=== PATIENT | female | born 1945 | race Caucasian/White ===

== ENCOUNTER 2019-11-21 00:45 | Observation (INO) | payer OTHER ==
[~2019-11-21] VITALS: Ht 170.2 cm; Wt 73.5 kg
[2019-11-21] VITALS (8 sets, daily range): BP systolic 91–119; BP diastolic 55–70
[2019-11-21] MEDS ORDERED: METFORMIN HCL500 M3 PO (01:12)
[2019-11-21] MEDS ORDERED: HYDROXYZINE HCL25 M2 PO (01:13)
[2019-11-21] MEDS ORDERED: JANUVIA100 MG PO (01:14)
[2019-11-21] MEDS ORDERED: CARVEDILOL PO (01:14)
[2019-11-21] MEDS ORDERED: FUROSEMIDE 20 M20 M1 PO (01:15)
[2019-11-21] MEDS ORDERED: PRAVACHOL 20 MG20 M1 PO (01:15)
[2019-11-21] MEDS ORDERED: VITAMIN B-121000 MC2 SUBLING (01:16)
[2019-11-21] MEDS ORDERED: ASA81BEC PO (01:17)
[2019-11-21] MEDS ORDERED: VITAMIN D 2 PO (01:19)
[2019-11-21] MEDS ORDERED: CHOLESTYRAMINE P4 GM PO (01:20)
[2019-11-21] MEDS ORDERED: SUPER THERAVIT1 EACH PO (01:20)
[2019-11-21 01:56] LABS: ABSOLUTE EOSINOPHILS 0.1 thou/uL (0.0-0.7); ABSOLUTE LYMPHOCYTES 1.3 thou/uL (0.8-5.3); ABSOLUTE MONOCYTES 0.9 thou/uL (0.0-1.2); ABSOLUTE NEUTROPHILS 6.4 thou/uL (1.6-8.1); BASOPHILS 0.5 %; EOSINOPHILS 1.6 %; HEMATOCRIT 38.9 % (37.0-47.0); HEMOGLOBIN 13.4 gm/dL (12.0-15.0); LYMPHOCYTES 15.3 %; MCH 31.6 pg (26.0-34.0); MCHC 34.5 g/dL (28.0-37.0); MCV 91.5 fL (80.0-100.0); MONOCYTES 9.8 %; MPV 9.6 fl. (7.2-11.1); NUCLEATED RBCS 0 /100WBC; PLATELET COUNT* 190 thou/uL (150-400); POLYS 72.8 %; RBC 4.25 mil/uL (4.20-5.00); RDW-CV 13.6 % (10.5-14.5); WBC 8.8 thou/uL (4.0-11.0)
[2019-11-21 02:08] LABS: CALCIUM 8.4 mg/dL (8.5-10.1); CREATININE 0.8 mg/dL (0.6-1.3); POTASSIUM 3.8 mmol/L (3.5-5.1)
[2019-11-21 02:10] LABS: PROTIME 10.7 Seconds (9.20-11.50)
[2019-11-21 02:21] LABS: ALBUMIN 3.5 g/dL (3.4-5.0); TOTAL BILIRUBIN 1.1 mg/dL (<0.1-1.0); TOTAL PROTEIN 6.7 g/dL (6.4-8.2)
--- NOTE | 2019-11-21 07:18 | NUR ---
Pt admitted to 233 @ 0515. Alert and oriented. Vss on 2l. Pt oriented to RM and call light. Pt rates pain a 5. Pt NSR on the monitor. Pt has a HX of fall and voiced that she uses walker and cane at home. Therefore pt is a fall risk. Fall precaution in place. Med reconciliation done. Pt currently in bed, resting. Will continue to monitor.
[2019-11-21 09:42] LABS: CHOLESTEROL 176 mg/dL (<200); HDL CHOLESTEROL 37 mg/dL (>40); LDL CHOLESTEROL 78 mg/dL (<100); SERUM ASSESSMENT Clear; TC:HDL 4.8 Ratio (Not establshd); TRIGLYCERIDE 307 mg/dL (<150); VLDL 61 mg/dL (<40)
--- NOTE | 2019-11-21 09:55 | EKG ---
[place] [address] ELECTROCARDIOGRAM REPORT Name: CASTRO ANTHONY Room: [address]R.#: [id number] Admission: 11/21/19 Attend Phys: Kriss lo Sa Discharge: Date of : 47 Date of Service: 11/21/19 0050 Report #: [id number] THIS REPORT FOR: //name// [facility] ED Test Date: 2019-11-21 Test Time: 00:50:32 Pat Name: CASTRO ANTHONY Department: Room: [facility] Gender: F Lot Associate: COLE : 1945 Requested By: Sophia Daily Order Number: [id number] MD: Thad España Measurements Intervals [place] Rate: 85 P: MA: QRS: -55 QRSD: 83 T: 38 QT: 384 QTc: 457 Interpretive Statements sinus rhythm Inferior infarct, old Anteroseptal infarct, age indeterminate No previous ECG available for comparison Electronically Signed On 11-21-2019 9:55:23 CDT by Thad España [email or web address] <ELECTRONICALLY SIGNED> By: Thad España MD, [facility] 11/21/19 0955 0050 0050 Thad España MD, [facility] /EPI
--- NOTE | 2019-11-21 11:37 | NUR ---
SW met with pt to complete initial assessment, introduce self, and SW role. Pt alert, oriented. Pt lives at home alone. Pt has RW, cane. Pt does not have any hx HH. Pt said she is trying to work with [employer] on assisting with housework bc she does not have enough finances for private duty cost. Pt does not anticipate any dc needs at this time. SW to continue to follow to assist with safe dc planning if needs arise.
[2019-11-21] MEDS ORDERED: COREG3.125 MG PO (13:45)
--- NOTE | 2019-11-21 15:34 | NUR ---
ASSUMED PT CARE AT 0730, PT RESTING IN BED C/O PAIN TO CHEST, ESPECIALLY WHEN SHE BREATHES IN TOO DEEPLY. CARDIOLOGY CAME IN TO SEE PT AND ORDERED ONE TIME DOSE OF PAIN MEDS, GIVEN TO PT W/ PARTIAL RELIEF. PT CLEARED BY DOCTOR TO DC ONCE CARDIOLOGY IS OKAY TO CLEAR PT, SEE NOTES. PT GOAL IS PAIN MANAGEMENT AND TO INCREASE ACTIVITY. AM ASSESSMENT CHARTED, MEDS PER MAR, HOURLY ROUNDING OBSERVED, FALL PRECAUTIONS IN PLACE, CALL LIGHT W/IN REACH, WILL CONTINUE POC.
--- NOTE | 2019-11-21 16:30 | 2DMMODE ---
[place] [address] 2 D/M-MODE ECHOCARDIOGRAM Name: CASTRO ANTHONY Room: [address] MMadhavi#: [id number] Admission: 11/21/19 Attend Phys: Kriss lo Sa Discharge: Date of : 47 Date of Service: 11/21/19 1629 Report #: [id number] THIS REPORT FOR: cc: Angel Quezada Brad DO Liston, Michael J. MD [facility] ~ APPROVED REPORT Study performed: 11/21/2019 14:58:01 EXAM: Comprehensive 2D, Doppler, and color-flow Echocardiogram Patient Location: In-Patient Room #: [facility] Status: routine BSA: 1.85 HR: 90 bpm BP: 115/68 mmHg Rhythm: NSR Other Information Study Quality: Good Indications Diabetes CAD Chest Pain 2D Dimensions IVSd: 12.77 (7-11mm) LVOT Diam: 21.30 (18-24mm) LVDd: 39.58 mm PWd: 12.12 (7-11mm) Ascending Ao: 33.35 (22-36mm) LVDs: 28.20 (25-40mm) Aortic Root: 35.22 mm Volumes Left Atrial Volume (Systole) LA ESV Index: 17.20 mL/m2 Aortic Valve AoV Peak Dhruv.: 1.08 m/s AO Peak Gr.: 4.63 mmHg LVOT Max P.35 mmHg AO Mean Gr.: 2.25 mmHg LVOT Mean P.21 mmHg LVOT Max V: 0.77 m/s AO V2 VTI: 17.09 cm LVOT Mean V: 0.51 m/[place] [address] 2 D/M-MODE ECHOCARDIOGRAM Name: CASTRO ANTHONY Room: [address] Conchita MXanderRXander#: [id number] Admission: 11/21/19 Attend Phys: Kriss lo Sa Discharge: Date of : 47 Date of Service: 11/21/19 1629 Report #: [id number] BAM (VTI): 3.00 cm2 LVOT V1 VTI: 14.40 cm Mitral Valve E/A Ratio: 0.62 MV Decel. Time: 165.85 ms MV E Max Dhruv.: 0.52 m/s MV PHT: 48.10 ms MVA (PHT): 4.57 cm2 TDI E/Lateral E': 5.78 E/Medial E': 5.20 Medial E' Dhruv.: 0.10 m/s Lateral E' Dhruv.: 0.09 m/s Pulmonary Valve PV Peak Dhruv.: 0.91 m/s PV Peak Gr.: 3.29 mmHg Left Ventricle The left ventricle is normal size. There is normal LV segmental wall motion. Mild concentric left ventricular hypertrophy. Left ventricular systolic function is normal. LVEF is 60-65%. Grade I - abnormal relaxation pattern. Right Ventricle The right ventricle is normal size. The right ventricular systolic function is normal. Atria The left atrium size is normal. The right atrium size is normal. Aortic Valve The aortic valve is normal in structure. No aortic regurgitation is present. There is no aortic valvular stenosis. Mitral Valve The mitral valve is normal in structure. Trace mitral regurgitation. No evidence of mitral valve stenosis. Tricuspid Valve The tricuspid valve is normal in structure. Trace tricuspid regurgitation. Unable to assess PA pressure. Pulmonic Valve The pulmonary valve is normal in structure. There is no pulmonic [place] [address] 2 D/M-MODE ECHOCARDIOGRAM Name: CASTRO ANTHONY Room: [address] Kulwinder#: [id number] Admission: 11/21/19 Attend Phys: Kriss lo Sa Discharge: Date of : 47 Date of Service: 11/21/19 1629 Report #: [id number] Great Vessels The aortic root is normal in size. IVC is normal in size and collapses >50% with inspiration. Pericardium There is no pericardial effusion. <Conclusion> The left ventricle is normal size. Mild concentric left ventricular hypertrophy. Left ventricular systolic function is normal. LVEF is 60-65%. Grade I - abnormal relaxation pattern. Trace mitral regurgitation. Trace tricuspid regurgitation. IVC is normal in size and collapses >50% with inspiration. <ELECTRONICALLY SIGNED> By: Ranjna Craft MD, FACC 11/21/19 1629 1629 1629 Ranjan Craft MD, FACC /INF
--- NOTE | 2019-11-21 18:34 | NUR ---
NO ACUTE CHANGES THROUGHOUT SHIFT, PT GOT UP MULTIPLE TIMES TO USE THE RESTROOM AND CALLED OUT APPROPRIATELY FOR HELP. PT HAD FURTHER C/O PAIN, DR LOBO CONSULTED, PRN NASIR ORDERS RECEIVED AND GIVEN TO PT W/ SOME RELIEF. MEDS PER JUL, HOURLY ROUNDING OBSERVED, FALL PRECAUTIONS IN PLACE, CALL LIGHT W/IN REACH, WILL CONTINUE POC.
--- NOTE | 2019-11-21 20:24 | NUR ---
PT A+O X 4. DENIES ANY PAIN OR DISCOMFORT. CALIRIFIED WITH DR CHUN ON PHONE PT OK TO D/C TODAY. REVIEWED D/C INSTRUCTIONS WITH PATIENT: S/S TO WATCH FOR, F/U APPTS, MEDICATION CHANGES AND HOME MED ROURITNE REVIEWED. NO QUESTIONS. UP INDEPENDTLY TO WHEELCHAIR. ESCORTED TO PT'S VEHICLE PER STAFF. WALKED STEADY TO NEIGHBORS TRUCK. RIDE HOME PER NEIGHBOR
== END 2019-11-21 20:15 | disposition home or self-care (01) ==
LOC: M.ERS 00:45 → M.TBA-ER 02:49 → M.2W 02:49
PROVIDERS: Personal Emergency Response Attendant; Registered Nurse; ADMIT Family Medicine; ATTEND Family Medicine
DX: M94.0 Chondrocostal junction syndrome [Tietze] (principal); I25.2 Old myocardial infarction; I25.10 Atherosclerotic heart disease of native coronary artery without angina pectoris; I10 Essential (primary) hypertension; E78.5 Hyperlipidemia, unspecified